=== PATIENT | female | born 1940 | race Caucasian/White ===

== ENCOUNTER 2021-02-03 10:28 | Emergency (ER) | payer MEDICARE, OTHER ==
[2021-02-03 10:45] VITALS: BP 148/100
--- NOTE | 2021-02-03 11:32 | XRAY Report ---
PROCEDURE: Knee 3 View RT INDICATIONS: FALL 2 DAYS AGO TECHNIQUE: 3 views of the right knee(s) were acquired. COMPARISON: None. FINDINGS: Bones: Knee arthroplasty is been performed. Hardware appears intact. No fractures or dislocations. No suspicious bony lesions. Soft tissues: No joint effusion. No suspicious soft tissue calcifications. IMPRESSION: Knee arthroplasty. No acute fracture. No osseous lesion. If symptoms and/or clinical nina picion for pathology continue, further assessment with repeat plain films, or advanced imaging (e.g., CT or bone scan) is recommended for further assessment. Reviewed by: Rajesh Azevedo MD on 02/03/2021 11:31 AM PST Approved by: Rajesh Azevedo MD on 02/03/2021 11:31 AM PST Station ID: [id number]
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
[2021-02-03] MEDS ORDERED: DEXAMETHASONE 10 MG/ML VIAL PO STA (11:44)
[2021-02-03] MEDS ORDERED: CHERRY SYRUP 10 ML UDC PO ONE (11:44)
== END 2021-02-03 11:53 | disposition home or self-care (01) ==
LOC: ED 10:28
DX: S80.01XA Contusion of right knee, initial encounter (principal); W18.30XA Fall on same level, unspecified, initial encounter; Y93.01 Activity, walking, marching and hiking; Y92.129 Unspecified place in nursing home as the place of occurrence of the external cause; I10 Essential (primary) hypertension; Z96.651 Presence of right artificial knee joint
CPT/HCPCS: 73562; 99282; 99283; A9270

== ENCOUNTER 2021-12-08 08:00 | Outpatient (CLI) | payer MEDICARE, OTHER ==
--- NOTE | 2021-12-08 14:43 | XRAY Report ---
PROCEDURE: Hip 2 View RT INDICATIONS: RIGHT HIP PAIN TECHNIQUE: Single view pelvis and 2 views of the hip were acquired. COMPARISON: None FINDINGS: Bones: Right hip arthroplasty components are in position. No periprosthetic lucency. No prosthetic d islocation. No fractures or dislocations. No suspicious bony lesions. The visualized pelvic ring ap pears intact. Soft tissues: No suspicious soft tissue calcifications or masses. IMPRESSION: 1. Intact right hip prosthesis without radiographic evidence of loosening, periprosthetic fracture, o r dislocation. Reviewed by: Na Muhammad MD on 12/08/2021 2:41 PM PDT Approved by: Na Muhammad MD on 12/08/2021 2:41 PM PDT Station ID: [id number]
== END 2021-12-08 23:59 | disposition home or self-care (01) ==
LOC: DI.WOS 08:00
PROVIDERS: ATTEND Physician Assistant
DX: M25.551 Pain in right hip (principal); Z96.641 Presence of right artificial hip joint